=== PATIENT | female | born 1960 | race Caucasian/White ===

== ENCOUNTER 2020-02-10 16:18 | Emergency (ER) | payer OTHER ==
[2020-02-10] MEDS ORDERED: HYDROCODON-ACE1 EAC4 PO (21:00)
== END 2020-02-10 21:10 | disposition home or self-care (01) ==
LOC: ER1 16:18
DX: S43.014A Anterior dislocation of right humerus, initial encounter (principal); X58.XXXA Exposure to other specified factors, initial encounter
CPT/HCPCS: 23650; 73020; 73030; 99283; J2704